=== PATIENT | female | born 1995 | race Hispanic/Latino ===

== ENCOUNTER 2017-12-05 13:01 | Emergency (ER) | payer OTHER ==
[2017-12-05 13:21] VITALS: RESP 18; TEMP 98.1
--- NOTE | 2017-12-05 16:34 | US ---
Date of service: 12/05/2017 PROCEDURE: OB Pelvic Ultrasound HISTORY: viability LMP: 08/16/2017 COMPARISON: None available. FINDINGS: UTERUS: Gestational sac: Single live intrauterine fetus in breech presentation. Heart rate: 137 bpm. BPD: 3.77 cm corresponding to 17 weeks and 4 days of gestational age. HC: 13.64 cm corresponding to 17 weeks and 0 day of gestational age. AC: 11.07 cm corresponding to 16 weeks and 6 days of gestational age. FL: 2.13 cm corresponding to 16 weeks and 3 days of gestational age. age (Ultrasound estimated): 17 weeks and 0 day Kaylene-gestational hemorrhage: None. Date of delivery (Ultrasound estimated) : Placenta is anterior. CERVIX: Measures 3.77 cm. Long and closed. No cervical abnormality seen. RIGHT OVARY: Not visualized. LEFT OVARY: Not visualized. FREE FLUID: None. OTHER FINDINGS: None. IMPRESSION: Single live intrauterine gestation with mean gestational age of 17 weeks and 0 days. Placenta is anterior. Cervix is closed. The estimated date of delivery by ultrasound is 05/15/2018. The ultrasound dates lag by the clinical dates by 10 days. Clinical follow-up is advised. Please note this is a limited OB ultrasound performed on an emergent basis. Dedicated follow-up anatomic survey is advised.
[2017-12-05 16:36] VITALS: BP 114/74; PULSE 84; O2SAT 99
--- NOTE | 2017-12-05 18:16 | C.PDOC ---
History Of Present Illness 22 year old female presents to the emergency department requesting a check. Patient states that she was running fast and kicked a pole. She denies abdominal pain, vaginal bleeding, or vaginal discharge. Chief Complaint (Nursing): Medical Clearance History Per: Patient History/Exam Limitations: no limitations Onset/Duration Of Symptoms: Hrs Past Medical History Reviewed: Historical Data, Nursing Documentation, Vital Signs Vital Signs: Last Vital Signs Temp 98.1 F 12/05/17 13:16 Pulse 84 12/05/17 16:35 Resp 18 12/05/17 16:35 BP 114/74 12/05/17 16:35 Pulse Ox 99 12/05/17 18:29 - Medical History PMH: No Chronic Diseases Surgical History: No Surg Hx Family History: States: No Known Family Hx - Social History Hx Alcohol Use: No Hx Substance Use: No - Immunization History Hx Tetanus Toxoid Vaccination: Yes Hx Influenza Vaccination: No Hx Pneumococcal Vaccination: No Review Of Systems Except As Marked, All Systems Reviewed And Found Negative. Gastrointestinal: Negative for: Abdominal Pain Genitourinary: Negative for: Vaginal Discharge, Vaginal Bleeding, Pelvic Pain Physical Exam - Physical Exam Appears: Non-toxic, No Acute Distress Skin: Warm, Dry Head: Atraumatic, Normacephalic Eye(s): bilateral: Normal Inspection Nose: Normal Neck: Normal, Supple Chest: Symmetrical, No Tenderness Cardiovascular: Rhythm Regular, No Murmur Respiratory: Normal Breath Sounds, No Rales, No Rhonchi, No Wheezing Gastrointestinal/Abdominal: Soft, No Tenderness, No Guarding, No Rebound, Other (gravid uterus) Extremity: Normal ROM (all extremities) ED Course And Treatment O2 Sat by Pulse Oximetry: 99 (RA) Pulse Ox Interpretation: Normal - CT Scan/US US OB Other Rad Studies (CT/US): Read By Radiologist, Radiology Report Reviewed CT/US Interpretation: IMPRESSION: Single live intrauterine gestation with mean gestational age of 17 weeks and 0 days. Placenta is anterior. Cervix is closed. The estimated date of delivery by ultrasound is 05/15/2018. The ultrasound dates lag by the clinical dates by 10 days. Clinical follow-up is advised. Please note this is a limited OB ultrasound performed on an emergent basis. Dedicated follow-up anatomic survey is advised. Progress Note: Plan: US OB Disposition - Disposition Referrals: [facility], [Non-Staff] - Disposition: HOME/ ROUTINE Disposition Time: 16:00 Condition: GOOD Additional Instructions: ALFONSO SWENSON, thank you for letting us take care of you today. The emergency medical care you received today was directed at your acute symptoms. If you were prescribed any medication, please fill it and take as directed. It may take several days for your symptoms to resolve. Return to the Emergency Department if your symptoms worsen, do not improve, or if you have any other problems. Please contact your doctor or call one of the physicians/clinics you have been referred to that are listed on the Patient Visit Information form that is included in your discharge packet. Bring any paperwork you were given at discharge with you along with any medications you are taking to your follow up visit. Our treatment cannot replace ongoing medical care by a primary care provider outside of the emergency department. Thank you for allowing the [facility] team to be part of your care today. Follow up with your [facility] doctor as scheduled for regular checkups. Instructions: - [facility] Forms: [employer] (Setswana) - Clinical Impression Clinical Impression: - Scribe Statement The provider has reviewed the documentation as recorded by the Scribe (Sal Hollingsworth) Provider Attestation: All medical record entries made by the Scribe were at my direction and personally dictated by me. I have reviewed the chart and agree that the record accurately reflects my personal performance of the history, physical exam, medical decision making, and the department course for this patient. I have also personally directed, reviewed, and agree with the discharge instructions and disposition.
== END 2017-12-05 16:55 | disposition home or self-care (01) ==
LOC: C.ER 13:01
DX: O26.892 Other specified pregnancy related conditions, second trimester (principal); Z3A.17 17 weeks gestation of pregnancy